=== PATIENT | male | born 1940 | race African-American/Black ===

== ENCOUNTER → 2021-10-25 | Outpatient (CLI) | payer OTHER ==
[~2021-10-25] MED LIST: ALTACE10 MG PO; K-NORM10 MEQ PO; NORVASC10 MG PO; PRILOSEC20 MG PO; SIMVASTATIN40 MG PO; ULTRAM50 MG PO
[2021-10-25 13:02] LABS: HEMATOCRIT 38.2 % (42.0-52.0); MEAN CELL VOLUME 82.9 fl (80.0-94.0); MEAN CORPUSCULAR HGB 26.2 pg (27.0-31.0); MEAN CORPUSCULAR HGB CONC 31.7 g/dl (33.0-37.0); MEAN PLATELET VOLUME 9.7 fl (9.6-12.3); RED BLOOD COUNT 4.61 10*6/uL (4.50-5.90); RED CELL DISTRI WIDTH 15.7 % (0-14.5); WHITE BLOOD COUNT 4.9 10*3/uL (4.8-10.8)
[2021-10-25 13:19] LABS: ALBUMIN 3.3 gm/dl (3.1-4.5); CREATININE 2.94 mg/dL (0.70-1.30); POTASSIUM 4.5 mmol/L (3.5-5.1); TOTAL PROTEIN 7.8 gm/dL (6.4-8.2)
== END | disposition home or self-care (01) ==
LOC: LAB 12:31
PROVIDERS: ATTEND Physician Assistant Medical
DX: I10 Essential (primary) hypertension (principal); I49.3 Ventricular premature depolarization; E83.52 Hypercalcemia; R73.01 Impaired fasting glucose